=== PATIENT | female | born 1975 | race Caucasian/White ===

== ENCOUNTER 2025-07-05 02:42 | Emergency (ER) | payer OTHER, SELFPAY ==
[2025-07-05 02:44] VITALS: BP 132/78
--- NOTE | 2025-07-05 03:24 | ED.GENMED ---
History of Present Illness
General
Chief Complaint: Musculo-Skeletal Complaint
Source: patient
Exam Limitations: none
Time Seen by Provider: 07/05/25 03:03
Nursing documentation reviewed up to this point in time: agreed with
History of Present Illness
History of Present Illness:
This is a 50-year-old female with a past medical history of iron deficiency anemia, bipolar disorder, depression, PTSD, presents to the ER today with concerns of burning pain in her bilateral heels going on for the past 3 months. Patient reports
that her symptoms were not particularly worse tonight but her partner was concerned that she was walking less and not as functional as she usually is due to her symptoms. She reports that these symptoms are most pronounced with walking and reports
that sometimes the burning and numbness and tingling is so pronounced that she cannot stand. She denies any issues with her balance or recent or frequent falls. She denies any recent injury to her feet or blunt trauma. She denies any history of
operations or ankles. She reports that occasionally the sensation will disrupt her sleep. She has tried taking ibuprofen for symptoms which has not helped. This sensation does not travel up the legs. Is not associated with back pain. She denies
any urinary or fecal incontinence. She denies any genital paresthesias. She reports that she used to have sciatica but has not had pain with that for some time. She denies any fevers or chills. She reports a family history of diabetes but does
not mention a personal history of it. She is currently trying to establish care with a primary care provider and does have insurance coverage. She denies any recent viral illnesses, denies any recent vaccines. This sensation is constant usually
improves when her feet are elevated. She reports that during the day she is on her feet frequently. She denies any sensation of weakness in her feet or lower extremities. She also reports that sometimes she gets a electroc shock sensation going
into her feet.
Past History
Social History
Tobacco: Smoker
Personal: Single
Living: with family
Employment: Disabled
Review of Systems
Review of Systems
All Other Systems: ROS reviewed and negative except as documented in HPI and ROS
Phy Exam
Physical Exam
Physical Exam:
General: Alert, no acute distress.
Skin: Warm, dry.
Head: Normocephalic, atraumatic.
Neck: Supple, trachea midline.
Eyes, Ears, Nose, Mouth, and Throat: Oral mucosa moist.
Cardiovascular: Regular rate
Respiratory: Respirations are non-labored.
Gastrointestinal: Abdomen nondistended.
Back: Normal range of motion, normal alignment.
Musculoskeletal: No bony tenderness or palpable bony deformities noted to bilateral feet and ankle joints. Normal range of motion of the bilateral lower extremities. Normal gait.
Neurological: CN II-XII intact. Sensation intact to bilateral lower extremities. Tenderness and sensitivity noted to palpation to posterior heels bilaterally. Alert and oriented to person, place, time, and situation, no focal neurological deficit
observed. 5/5 dorsiflexion and plantar flexion strength, 5/5 knee flexion and extension strength.
Psychiatric: Cooperative, appropriate mood and affect.
Course
Orders/Labs/Results
Orders:
Orders
07/05/25 03:46
Gabapentin [Neurontin] 200 mg PO NOW STA
07/05/25 05:06
CPK [Creatine Phosphokinase] Urgent
Complete Blood Count/With Diff Urgent
Comprehensive Metabolic Panel Urgent
Folate Urgent
Vitamin B12 Urgent
Vitamin B6 (Pyridoxine) [S] Urgent
Abnormal Lab Results
07/05/25
05:06
RBC 3.88 L 10^6/uL
(4.20-5.40)
Hgb 11.9 L g/dL
(12.0-16.0)
Hct 36.8 L %
(37.0-47.0)
MCHC 32.3 L g/dL
(33.0-37.0)
Carbon Dioxide 32 H mmol/L
(22-30)
Glucose 100 H mg/dl
(70-99)
AST 53 H U/L
(14-36)
ALT 66 H U/L
(0-35)
Creatine Kinase 178 H U/L
(30-135)
07/05/25 05:06
07/05/25 05:06
Vital Signs
Initial and Last Documented VS:
Initial Vital Signs
Temp Pulse Resp BP Pulse Ox
98.4 F 76 16 132/78 99
07/05/25 02:44 07/05/25 02:44 07/05/25 02:44 07/05/25 02:44 07/05/25 02:44
Last Documented Vital Signs
Temp Pulse Resp BP Pulse Ox
97.9 F 69 18 142/78 100
07/05/25 06:19 07/05/25 06:19 07/05/25 06:19 07/05/25 06:19 07/05/25 06:19
MDM/Problems Addressed
Differential Diagnosis Includes:
Differentials include tarsal tunnel syndrome, plantar fasciitis, Achilles tendinitis, diabetic neuropathy, MS, vitamin deficiency,
MDM/Problems Addressed:
This is a 50-year-old female with a past medical history of iron deficiency anemia, bipolar disorder, depression, PTSD, presents to the ER today with concerns of burning pain in her bilateral heels going on for the past 3 months. Patient reports
that her symptoms were not particularly worse tonight but her partner was concerned that she was walking less and not as functional as she usually is due to her symptoms. Ibuprofen has not been helping at home. She did find partial symptomatic
relief in the ER with gabapentin. The symptoms are associated with occasional numbness and tingling worse with walking.
No associated ascending paralysis, low back pain, fevers or chills, abnormal gait, foot drop. No objective weakness on exam. She is moderately tender and very sensitive to light touch over the posterior heels bilaterally. Labs reviewed, no impaired
fasting glucose no evidence of electrolyte derangement or vitamin deficiency. Suspect peripheral neuropathy vs b/l plantar fasciitis. Will prescribe nightly gabapentin. Stressed importance of follow up with primary for further evaluation, discussed
strict return precautions. Patient stable for discharge.
Chronic conditions affecting care:
ptsd, anxiety, depression, bipolar
*Pulse Oximetry
SaO2: 99
Oxygen Mode of Delivery: Room air
Patient hypoxic: no
*Critical Care Note
Total Time (30-74mins, 75-104mins- exclusive of procedures): Not Applicable
ED Attending Note
-
Portions of this chart may have been created with voice recognition software.� Occasional wrong word or��sound alike� substitutions may have occurred due to the inherent limitations of voice recognition software.
Discharge Plan
Departure
Patient Disposition: Home (Routine Discharge)
Date of Disposition: 07/05/25
Time of Disposition: 06:19
Patient with high blood pressure during this ER visit?: Yes
Condition: Good
Discharge Problem:
Heel pain, bilateral, Neuropathic pain
Instructions: Peripheral neuropathy, BLOOD PRESSURE
Prescriptions:
New
gabapentin 300 mg capsule
300 mg PO HS Qty: 14 0RF
No Action
tramadol-acetaminophen 1 EACH tablet
1 ea PO Q6HPRN PRN (Reason: pain) Qty: 20 0RF
diclofenac sodium 75 mg tablet,delayed release (DR/EC)
75 mg PO BID Qty: 10 0RF
Referrals:
[facility] [Provider Group] - Call in 1-3 days for appt
Edna Armendariz MD [Non-Admitting Privileges, Family Practice] - Call in 1-3 days for appt
UNKNOWN,NO INTERVIEW [Family Provider]
Activity Restrictions/Additional Instructions:
Gabapentin has been sent to your pharmacy. You can take one tablet once nightly.
Please establish care with primary care provider with further workup of your symptoms.
I recommend repeating your CMP blood work in the future as your liver enzymes were mildly elevated today. Please stay well hydrated. You will receive a call if your vitamin levels are abnormal.
PLEASE RETURN TO THE ER SHOULD YOU DEVELOP INABILITY TO AMBULATE, URINARY OR FECAL INCONTINENCE, LOSS OF SENSATION IN LOWER EXTREMITIES, FEVERS OR CHILLS, OR ANY OTHER SIGNS OR SYMPTOMS WORRISOME TO YOU.
Interventions
Interventions:
*Risk Screen - Suicide Last Done: 07/05/25 02:48
*General Assessment Last Done: 07/05/25 02:48
*Neglect/Abuse Screening Last Done: 07/05/25 02:48
*ED- Fall Risk Assessment Last Done: 07/05/25 02:48
*ED COVID-19 Vaccine History Last Done: 07/05/25 02:48
*ED Influenza Vaccine History Last Done: 07/05/25 02:48
*Nursing Disposition Last Done: 07/05/25 06:49
ED-Musculoskeletal Assessment Last Done: 07/05/25 02:59
Discharge Date and Time
Discharge Date/Time: 07/05/25 06:50
Print Language: AMHARIC
[2025-07-05] MEDS: NEURONTIN 200 MG PO (03:57)
[2025-07-05 05:25] LABS: Hematocrit 36.8 % (37.0-47.0); Hemoglobin 11.9 g/dL (12.0-16.0); Mean Corp Hgb Conc. 32.3 g/dL (33.0-37.0); Mean Corpuscular Volume 94.8 fL (81.0-99.0); Nucleated Red Blood Cells % 0 %; Platelet Count 307 10^3/uL (130-400); Red Cell Dist. Width 13.3 % (11.5-14.5)
[2025-07-05 05:48] LABS: ALT (SGPT) 66 U/L (0-35); AST (SGOT) 53 U/L (14-36); Albumin 3.8 g/dl (3.5-5.0); Alkaline Phosphatase 80 U/L (38-126); Blood Urea Nitrogen 12 mg/dl (7-17); Calcium 9.3 mg/dl (8.4-10.2); Carbon Dioxide 32 mmol/L (22-30); Chloride 106 mmol/L (98-107); Glucose 100 mg/dl (70-99); Potassium 3.7 mmol/L (3.5-5.1); Sodium 141 mmol/L (135-145); Total Protein 7.7 g/dl (6.3-8.2); eGFR > 60.00
[2025-07-05 06:19] VITALS: BP 142/78
[2025-07-05 06:21] VITALS: BMI 44.4
[2025-07-05 06:56] LABS: Folate 5.1 ng/ml (2.76-20); Vitamin B12 571 pg/ml (239-931)
== END 2025-07-05 06:50 | disposition home or self-care (01) ==
LOC: EMR 02:42
PROVIDERS: Physician Assistant; EMERGENCY PHYSICIAN Emergency Medicine
DX: M79.672 Pain in left foot (principal); M79.671 Pain in right foot; M79.2 Neuralgia and neuritis, unspecified; R03.0 Elevated blood-pressure reading, without diagnosis of hypertension; F31.9 Bipolar disorder, unspecified; F43.10 Post-traumatic stress disorder, unspecified; F41.9 Anxiety disorder, unspecified; F17.200 Nicotine dependence, unspecified, uncomplicated
CPT/HCPCS: 99283; 80053; 82550; 82607; 82746; 84207; 85025